=== PATIENT | male | born 1960 | race Caucasian/White ===

== ENCOUNTER 2019-01-27 16:44 | Emergency (ER) | payer OTHER ==
[~2019-01-27] VITALS: Ht 170.2 cm; Wt 94.6 kg
[2019-01-27 16:53] VITALS: Ht 170.2 cm; Wt 94.6 kg
[2019-01-27] MEDS ORDERED: SOD CHLORIDE 0.9% 1,000 ML IV STA (17:54)
[2019-01-27] MEDS ORDERED: KETOROLAC 15 MG INJ IV STA (17:54)
[2019-01-27] MEDS ORDERED: NAPR-985 PO (19:12)
[2019-01-27 19:41] VITALS: BP 155/100; PULSE 68; RESP 18
--- NOTE | 2019-01-27 20:30 | ERD ---
ER Documentation Chief Complaint Chief Complaint neck pain, feels like food stuck, difficulty swallowing HPI 58-year-old man with a history of partial thyroidectomy presenting with lump in his throat and states he has had difficulty swallowing for about 1 month. He points to the anterior neck where surgery took place many years ago when describing the location of his lump and states he has been able to eat and drink foods without difficulty and without regurgitation. Patient has not had thyroid labs checked for a few years and does not use medications for hypo-or hyperthyroidism. Patient denies recent weight loss, no chest pain or shortness of breath, no abdominal pain, no weakness in his arms or legs, no slurred speech, no difficulty with ambulation. ROS All systems reviewed and are negative except as per history of present illness. Medications Home Meds Active Scripts Naproxen* (Naprosyn*) 500 Mg Tablet, 500 MG PO BID PRN for PAIN AND/OR INFLAMMATION, #30 TAB Prov:CHAO EARLY MD 01/27/19 Allergies Allergies: Coded Allergies: No Known Allergy (Unverified , 01/27/19) PMhx/Soc Partial thyroidectomy History of Surgery: Yes (THYROID REMOVAL 2014) Anesthesia Reaction: No Hx Neurological Disorder: No Hx Respiratory Disorders: No Hx Cardiac Disorders: No Hx Psychiatric Problems: No Hx Miscellaneous Medical Probl: No Hx Alcohol Use: No Hx Substance Use: No Hx Tobacco Use: No Smoking Status: Never smoker FmHx Family History: No diabetes Physical Exam Vitals Vital Signs Date Temp Pulse Resp B/P (MAP) Pulse Ox O2 O2 Flow FiO2 Time Delivery Rate 01/27/19 98.4 68 18 155/100 100 Room Air 19:41 (118) 01/27/19 98.4 67 18 154/104 100 Room Air 18:41 (121) 01/27/19 98.4 85 18 178/91 98 Room Air 17:40 (120) 01/27/19 98.4 86 18 178/91 98 16:53 (120) Physical Exam Const: Anxious, afebrile, generally well-developed well-nourished man HEENT: Horizontal surgical scar over the anterior neck consistent with remote partial thyroidectomy, no goiter noted, patient has no pharyngeal erythema or exudates, uvula is midline, no peritonsillar edema, no palpable cervical lymphadenopathy Resp: Clear to auscultation bilaterally Cardio: Regular rate and rhythm, no murmurs Abd: Soft, non tender, non distended. Normal bowel sounds Skin: No petechiae or rashes Back: No midline or flank tenderness Ext: No cyanosis, or edema Neur: Awake and alert x3, no focal deficits or facial asymmetry, gait normal, strength 5/5 in the upper and lower extremities bilaterally Psych: Appears anxious Result Diagram: 01/27/19181001/27/191810 Results 24 hrs Laboratory Tests Test 01/27/19 18:10 01/27/19 18:11 Free Thyroxine 0.97 ng/dl White Blood Count 9.3 10^3/ul Red Blood Count 5.36 10^6/ul Hemoglobin 14.5 g/dl Hematocrit 43.6 % Mean Corpuscular Volume 81.3 fl Mean Corpuscular Hemoglobin 27.1 pg Mean Corpuscular Hemoglobin Concent 33.3 g/dl Red Cell Distribution Width 12.6 % Platelet Count 222 10^3/UL Mean Platelet Volume 8.5 fl Immature Granulocytes % 0.300 % Neutrophils % 62.5 % Lymphocytes % 27.0 % Monocytes % 6.9 % Eosinophils % 2.9 % Basophils % 0.4 % Nucleated Red Blood Cells % 0.0 /100WBC Immature Granulocytes # 0.030 10^3/ul Neutrophils # 5.8 10^3/ul Lymphocytes # 2.5 10^3/ul Monocytes # 0.6 10^3/ul Eosinophils # 0.3 10^3/ul Basophils # 0.0 10^3/ul Nucleated Red Blood Cells # 0.0 10^3/ul Sodium Level 141 mmol/L Potassium Level 3.8 mmol/L Chloride Level 101 mmol/L Carbon Dioxide Level 30 mmol/L Anion Gap 10 Blood Urea Nitrogen 14 mg/dl Creatinine 0.80 mg/dl Est Glomerular Filtrat Rate mL/min > 60 mL/min Glucose Level 122 mg/dl Calcium Level 9.9 mg/dl Total Bilirubin 0.2 mg/dl Direct Bilirubin 0.00 mg/dl Indirect Bilirubin 0.2 mg/dl Aspartate Amino Transf (AST/SGOT) 30 IU/L Alanine Aminotransferase (ALT/SGPT) 55 IU/L Alkaline Phosphatase 69 IU/L Total Protein 7.7 g/dl Albumin 4.6 g/dl Globulin 3.10 g/dl Albumin/Globulin Ratio 1.48 Lipase 179 U/L Thyroid Stimulating Hormone (TSH) 2.940 MIU/L Free Triiodothyronine (T3) pg/mL 4.72 pg/ml Current Medications Medications Dose Sig/Jaren Start Time Status Last (Trade) Ordered Route PRN Stop Time Admin Dose Reason Admin Sodium 1,000 ml @ Q1H STAT 01/27/19 DC 01/27/19 Chloride 1,000 mls/hr IV 17:54 01/27/19 18:06 18:53 Ketorolac 15 mg ONCE STAT 01/27/19 DC 01/27/19 Tromethamine IV 17:54 01/27/19 18:06 (Toradol) 17:55 Procedures/MDM IV line was established patient was placed on clinical services assistant rhythm strip revealed a sinus rhythm at about 80 bpm with upright P and T waves. Patient was afebrile I administered 1 L normal saline IV and for later complaints of mild headache I administered Toradol 15 mg IV x1 Chest X-ray 1V Interpreted by me: Soft Tissue: No acute abnormalities Bones: No acute abnormalities Mediastinum/Cardiac Silhouette/Lungs: No acute abnormalities CBC and electrolytes are normal, liver function tests were normal, thyroid panel was within normal limits Patient's vital signs are normal at this time and he is asymptomatic after above therapy, I did recommend he follow-up with ink blender of his difficulty swallowing continues, he may also require outpatient swallow study although this can be arranged by his PMD. Patient has no objective signs or symptoms of dysphagia but this should be further investigated as an outpatient. Differential diagnoses considered, included but not limited to acute coronary syndrome, carcinoma, pulmonary embolism, aortic dissection, abdominal aortic aneurysm, sepsis, stroke, meningitis, encephalitis, pneumonia, appendicitis, cholecystitis, bowel obstruction, pyelonephritis, nephrolithiasis, cystitis, as well as metabolic, hematologic, and electrolyte abnormalities. As well as abscess, cellulitis, fractures, and dislocations. Patient feels much better at this time, and vital signs are normal, symptoms have improved. I did give strict instructions to return to the ED if symptoms continue or worsen, patient will otherwise follow-up with primary care physician. Patient understood instructions and agreed to plan. Disclaimer: Inadvertent spelling and grammatical errors are likely due to EHR/dictation software use and do not reflect on the overall quality of patient care. Also, please note that the electronic time recorded on this note does not necessarily reflect the actual time of the patient encounter. Departure Diagnosis: Primary Impression: Difficulty swallowing Dysphagia type: unspecified Qualified Codes: R13.10 - Dysphagia, unspecified Ruled Out: Neck pain Condition: Good Patient Instructions: Dysphagia: Exercises, Headache, Tension Referrals: OLIVER BARRAGAN MD, DAVID MD Jan 27, 2019 20:30
== END 2019-01-27 19:52 | disposition home or self-care (01) ==
LOC: E/R 16:44
DX: R13.10 Dysphagia, unspecified (principal)
CPT/HCPCS: 36415; 71045; 80053; 83690; 84439; 84443; 84481; 85025; 96374; 99284; J1885; J7030